=== PATIENT | female | born 1970 | race Caucasian/White ===

== ENCOUNTER 2024-04-06 12:04 | Day surgery (SDC) | payer OTHER ==
[~2024-04-06] VITALS: Ht 162.6 cm; Wt 75.0 kg
[~2024-04-06 12:04] MED LIST: BI EST; HYDROXYZINE HCL25 MG PO; IBLOOD GLUCOSE TEST STRIP 1 EA TEST VI PRN; LACTATED RINGER'S 1,000 ML IV SCH; LIDOCAINE HCL 1% 5 ML SDV INJ ONE; MIDAZOLAM HCL 5 MG/5 ML VIAL IV PRN; T3/T4 PO; TOBRAMYCIN-DEXAM5 ML; [UNRECOGNIZED DRUG - OTHER]; [UNRECOGNIZED DRUG - OTHER]; fentaNYL citrate 100 MCG/2 ML VIAL IV PRN
[2024-04-06 12:23] VITALS: BP 128/64
[2024-04-06] MEDS ORDERED: OZEMPIC2 MG/0.75 SUB-Q (12:34)
[2024-04-06] MEDS ORDERED: XCELLENT A 33000 MCG PO (12:35)
[2024-04-06] MEDS ORDERED: VITAMIN C 500500 M1 PO (12:36)
[2024-04-06] MEDS ORDERED: VITAMIN D250 MCG PO (12:36)
[2024-04-06] MEDS ORDERED: PRIMROSE PO (12:37)
[2024-04-06] MEDS ORDERED: CURCUMIN PHYTO500 MG PO (12:38)
[2024-04-06] MEDS ORDERED: FISH OIL 1,001000 MG PO (12:38)
[2024-04-06] MEDS ORDERED: CANDICIDAL CAP1 EACH PO (12:38)
[2024-04-06] MEDS ORDERED: PROBIOTIC1 EAC1 PO (12:39)
[2024-04-06] MEDS ORDERED: GALZIN25 MG PO (12:39)
[2024-04-06] MEDS ORDERED: fentaNYL citrate 100 MCG/2 ML VIAL ONE (13:13)
[2024-04-06] MEDS ORDERED: MIDAZOLAM HCL 5 MG/5 ML VIAL ONE ×2 (13:14→13:52)
--- NOTE | 2024-04-06 14:15 | NUR ---
04/06/24 1415 ZAIDA CHONG 1402 PT ARRIVED TO PACU VIA STREACHER, PT ON 2L OF O2 VIA NASAL CANULLA. REPORT TAKEN FROM MICHAEL GONZALEZ. PT AWAKE, PT STATES SHE HAS NO PAIN AT THIS TIME OR NAUSEA. PT RESTING ON SIDE WITH EYES CLOSED. PT RESPONSIVE TO VERBAL STIMULI. 1414 DOCTOR AT BEDSIDE SPEAKING WITH PT. PT REMOVED FROM O2, PT ON RA. PT OXYGEN SATURATION STAYING ABOVE 96% ON RA.
[2024-04-06 14:30] VITALS: BP 112/67
--- NOTE | 2024-04-09 14:27 | OR ---
[facility] [address], [place] [address] Signed DATE OF OPERATION: 04/06/2024 SURGEON: Promise Fletcher MD PREOPERATIVE DIAGNOSIS: Episodic bright blood per rectum with constipation. POSTOPERATIVE DIAGNOSIS: 1.5 cm polyp of rectum (pedunculated) and two small polyps, left colon. PROCEDURE: Total colonoscopy to cecum with hot snare polypectomy x1 and cold morcellation polypectomy x2. ANESTHESIA: Intravenous sedation; fentanyl 100 mcg, Versed 6 mg. INDICATION: This 54-year-old white woman is a patient of JOHN Patterson. She was referred for rectal bleeding including episodic bright red rectal bleeding, sometimes associated with constipation. She has no pain upon defecation and no family history of colon cancer. She is admitted at this time to undergo colonoscopy understanding risks of bleeding, infection, and perforation. FINDINGS: The prep was excellent. Complete colonoscopy was undertaken of the cecum without question. She had two very small polyps in the proximal and descending colon. Both excised with cold morcellation technique, but most importantly a pedunculated polyp of the rectum, which likely has resulted in episodic rectal bleeding. This was excised with hot snare technique. There were no other findings. Of note, specifically no fissure or hemorrhoidal changes so far as could be told. PROCEDURE IN DETAIL: The patient was brought to the endoscopy suite and placed in lateral decubitus position given intravenous sedation to the point of slurred speech and nystagmus. Digital rectal examination was normal. An Olympus video colonoscope was passed in the rectum and manipulated throughout the colon ultimately intubating the cecum itself. Ileocecal valve and appendiceal orifice were normal. The scope was withdrawn. Examination undertaken showing no sign of Electronically Signed By: PROMISE FLETCHER MD 04/09/24 1427 PATIENT NAME: PEDRO ALLEN OPERATIVE REPORT DATE OF : 72 REPORT #: [id number] PHYSICIAN: PROMISE FLETCHER MD PCP: MIRLANDE FONSECA REPORT IS CONFIDENTIAL AND NOT TO BE RELEASED WITHOUT AUTHORIZATION [facility] [address], [place] [address] Signed abnormality into the proximal descending colon where two small polyps were noted. These were excised with cold morcellation technique. Further withdrawal through the sigmoid showed no abnormality and in the rectum, a moderately large pedunculated polyp 1.5 cm in size was noted. This was excised with hot snare polypectomy technique without problem. Specimen was passed for Pathology as well. Scope was reintroduced and retroflexed view undertaken showing no sign of other abnormality and good hemostasis of the excision site. Scope was removed. The patient was taken to the recovery room in good condition. CONCLUDING DIAGNOSIS: Polyps x3, most likely rectal polyp accounting for bleeding. PLAN: Recommend repeat colonoscopy in 3 to 5 years, sooner if clinically indicated. She will return to the ongoing care of Mirlande Fonseca otherwise. MD DORYS Seymour/MIRA /[id number] cc: JOHN Patterson Copies: MIRLANDE FONSECA ~ Electronically Signed By: PROMISE FLETCHER MD 04/09/24 1427 PATIENT NAME: ALEJANDROPEDROSANTY DEE OPERATIVE REPORT DATE OF : 72 REPORT #: [id number] PHYSICIAN: PROMISE FLETCHER MD PCP: MIRLANDE FONSECA REPORT IS CONFIDENTIAL AND NOT TO BE RELEASED WITHOUT AUTHORIZATION
--- NOTE | 2024-04-10 17:25 | PATH ---
[facility] [address], [place] [address] Signed SPECIMEN(S): A DESCENDING COLON POLYP SPECIMEN(S): B DESCENDING COLON POLYPS SPECIMEN(S): C RECTAL POLYP SPECIMEN SOURCE: A. DESCENDING COLON POLYP B. DESCENDING COLON POLYPS C. RECTAL POLYP CLINICAL HISTORY: History rectal bleeding/constipation FINAL PATHOLOGIC DIAGNOSIS: A. Descending colon polyp: - Tubular adenoma (one fragment). B. Descending colon polyps: - Hyperplastic polyp (two fragments). C. Rectal polyp: - Tubular adenoma. JVR:clv MICROSCOPIC EXAMINATION: Histologic sections of all submitted blocks are examined by light microscopy. These findings, together with the gross examination, support the pathologic diagnosis. GROSS DESCRIPTION: A. The specimen, labeled and designated "Magalyor, descending colon polyp," is received in formalin and consists of three santizo soft tissue fragments, ranging from 0.1-0.7 cm. Entirely submitted in (A1). B. The specimen, labeled and designated "Baltzor, descending colon polyps #2," is received in formalin and consists of two santizo soft tissue fragments, ranging from 0.2-0.3 cm. Entirely submitted in (B1). C. The specimen, labeled and designated "Magalyor, rectal polyp," is received in formalin and consists of a red-brown to santizo polypoid piece of tissue (1.0 x 0.9 x 0.8 cm). The possible resection margin is inked blue, and the tissue is trisected to reveal pink-santizo to red-brown soft cut surfaces. The specimen is submitted entirely in cassette (C1). VB (under the direct supervision of a pathologist) PATIENT NAME: PEDRO ALLEN PATHOLOGY DATE OF : 72 REPORT #: [id number] PHYSICIAN: CINDY SOUZA PCP: MIRLANDE TIMMONS REPORT IS CONFIDENTIAL AND NOT TO BE RELEASED WITHOUT AUTHORIZATION [facility] [address], [place] [address] Signed The Gross Description was prepared using a voice recognition system. The report was reviewed for accuracy; however, sound-alike word errors, addition and/or deletions may occur. If there is any question about this report, please contact Client Services. PERFORMING LABORATORY: Technical component was performed by [facility], [address] [place] [address] (CLIA# [id number]). Professional interpretation was performed by [facility], [address] [place] [phone] (CLIA#: [id number]). Diagnostician: Paolo Edwards MD Pathologist Electronically Signed 04/10/2024 Copies: ~ PATIENT NAME: PEDRO ALLEN PATHOLOGY DATE OF : 72 REPORT #: [id number] PHYSICIAN: CINDY PATHOLOGY PCP: MIRLANDE TIMMONS REPORT IS CONFIDENTIAL AND NOT TO BE RELEASED WITHOUT AUTHORIZATION
== END 2024-04-06 14:38 | disposition home or self-care (01) ==
LOC: OPS 12:04 → DS 12:04 → OPS 13:00
PROVIDERS: ATTEND Surgery
PROC: 0DBN8ZZ Excision of Sigmoid Colon, Via Natural or Artificial Opening Endoscopic (ICD-10-PCS; 2024-04-06)
PROC: 0DBG8ZZ Excision of Left Large Intestine, Via Natural or Artificial Opening Endoscopic (ICD-10-PCS; principal; 2024-04-06 13:00)
DX: D12.8 Benign neoplasm of rectum (principal); D12.4 Benign neoplasm of descending colon; K63.5 Polyp of colon; Z79.899 Other long term (current) drug therapy
CPT/HCPCS: 99153; G0500; J2250; J3010; J7121